=== PATIENT | female | born 1975 | race Caucasian/White ===

== ENCOUNTER → 2017-10-16 | Outpatient (CLI) | payer OTHER ==
[~2017-10-16] VITALS: Ht 175.3 cm; Wt 128.8 kg
[~2017-10-16] MED LIST: CALCIUM WITH D31 CTB PO; VITAMIN B125000 MCG SL; VITAMIND3 5000 PO
[2017-10-16 15:51] VITALS: BP 118/62; PULSE 60
== END ==
LOC: LIGHT 15:45
DX: E66.01 Morbid (severe) obesity due to excess calories (principal); Z68.41 Body mass index [BMI] 40.0-44.9, adult; Z71.3 Dietary counseling and surveillance; Z98.84 Bariatric surgery status
CPT/HCPCS: G0463

== ENCOUNTER 2017-11-22 07:58 | Day surgery (SDC) | payer OTHER ==
[~2017-11-22] VITALS: Ht 175.3 cm; Wt 129.4 kg
[2017-11-22] VITALS (7 sets, daily range): BP systolic 95–119; BP diastolic 58–76; PULSE 57–70; TEMP 97.6–97.8
[2017-11-22] MEDS ORDERED: PROFERRIN ES12 MG PO (08:18)
[2017-11-22] MEDS ORDERED: PRILOSEC 20MG20 MG PO (09:46)
== END 2017-11-22 11:48 | disposition home or self-care (01) ==
LOC: SDCO 07:58
DX: K29.70 Gastritis, unspecified, without bleeding (principal); E66.01 Morbid (severe) obesity due to excess calories; Z68.41 Body mass index [BMI] 40.0-44.9, adult; Z98.84 Bariatric surgery status
CPT/HCPCS: OP; J2250; J3010; Q9967

== ENCOUNTER → 2017-11-27 | Outpatient (CLI) | payer OTHER ==
[~2017-11-27] VITALS: Ht 175.3 cm; Wt 130.2 kg
[~2017-11-27] MED LIST changes: +PRILOSEC 20MG20 MG PO; +PROFERRIN ES12 MG PO
[2017-11-27 14:28] VITALS: BP 106/76; PULSE 84
== END ==
LOC: LIGHT 14:18
DX: E66.01 Morbid (severe) obesity due to excess calories (principal); Z68.41 Body mass index [BMI] 40.0-44.9, adult; Z71.3 Dietary counseling and surveillance; Z98.84 Bariatric surgery status
CPT/HCPCS: G0463